=== PATIENT | female | born 1985 | race Caucasian/White ===

== ENCOUNTER → 2020-10-27 03:33 | Outpatient (CLI) | payer BC, SELFPAY ==
[2020-10-27 20:31] LABS: SARS-CoV-2 RNA PCR Negative
== END ==
PROVIDERS: Visit Provider Obstetrics & Gynecology
DX: Z01.812 Encounter for preprocedural laboratory examination (principal); Z20.822 Contact with and (suspected) exposure to COVID-19
CPT/HCPCS: C9803; U0003; U0005

== ENCOUNTER 2020-10-27 08:05 | Outpatient (CLI) | payer BC, SELFPAY ==
[2020-10-27 08:40] LABS: Basophils Percent Auto 0.6 % (0.2-1.2); Eosinophils Absolute Auto 0.1 K/mm3 (0-0.3); Eosinophils Percent Auto 0.9 % (0-4.4); Hematocrit 42.2 % (37.0-47.0); Hemoglobin 13.9 g/dL (12.0-15.0); Immature Granulocyte Absolute 0.01 K/mm3 (0.00-0.031); Immature Granulocyte Percent A 0.2 % (0-0.5); Lymphocytes Absolute Auto 1.57 K/mm3 (0.9-3.2); Lymphocytes Percent Auto 29.1 % (18.3-44.2); Mean Corpuscular HGB Conc 32.9 g/dl (32-36); Mean Corpuscular Hemoglobin 29.8 pg (26-34); Mean Corpuscular Volume 90.6 fl (80-100); Mean Platelet Volume 10.2 fl (7.4-10.4); Monocytes Absolute Auto 0.4 K/mm3 (0.1-0.6); Monocytes Percent Auto 7.4 % (2.6-8.5); Neutrophils Absolute Auto 3.3 K/mm3 (1.3-6.7); Neutrophils Percent Auto 61.8 % (45.5-73.1); Platelet Count Result 206 k/mm3 (150-375); Red Blood Count 4.66 M/mm3 (4.2-5.4); Red Cell Distribution Width 13.1 % (11.5-14.5); White Blood Count 5.4 K/mm3 (4.5-10.0)
== END 2020-10-27 08:06 | disposition home or self-care (01) ==
LOC: ANHSURGERY 08:13
PROVIDERS: PCP Family Medicine Adult Medicine; Visit Provider Obstetrics & Gynecology
DX: Z01.812 Encounter for preprocedural laboratory examination (principal); N81.4 Uterovaginal prolapse, unspecified
CPT/HCPCS: 36415; 85025; 86850; 86900; 86901

== ENCOUNTER 2020-10-30 01:39 | Day surgery (SDC) | payer BC, SELFPAY ==
[2020-10-15 15:33] VITALS: BMI 23.3
--- NOTE | 2020-10-28 12:07 | PM.IMHP ---
H&P: HPI History of Present Illness Date/Time: 10/28/20 12:07 35-year-old 3 para 2 is admitted for robotic total vaginal hysterectomy and bilateral salpingectomy. She has a known uterine prolapse. Her complaints include pain bleeding, and history of Pap. She understands this will make her permanently infertile. risks and benefits including but not exclusive of , aspiration pneumonia, bleeding, transfusion, perforation injury to bowel, bladder, ureters, or other internal organs with need for open laparotomy were all reviewed. She received the [employer] handout entitled hysterectomy as well as the [place] handout. She had all questions answered. And asked to proc Chief Complaint: pelvic pain/prolapse / abnormal Pap smears Review of Systems Review of Systems: All systems reviewed & are unremarkable except as noted in HPI and below PMFSH Social History Social History Years smoked: 15 Smoking status: Current some day smoker Tobacco type: cigarettes Second hand tobacco smoke exposure: No Additional smoking assessment comments: socially smokes when drinking; 1 pack per week on average Alcohol intake: current Drinks per week: 20 Substance use: never Spiritual care concerns: No Meds Home Medications and Allergies Home Medications Medication Instructions Recorded Confirmed Type levonorgestrel [Mirena] 1 device INTRAUTERINE ONCE 10/15/20 10/15/20 History Allergies Allergy/AdvReac Type Severity Reaction Status Date / Time amoxicillin Allergy Rash Verified 10/15/20 15:24 Exam Const: General: no acute distress Eyes: General: appearance normal, both eyes and all related structures Neck: Neck: supple and no JVD Thyroid: thyroid normal Resp: Effort & Inspection: normal respiratory effort Auscultation: clear to auscultation bilaterally Cardio: Rate: regular rate Rhythm: regular rhythm GI: Inspection: non-distended GI Palp: Yes Soft to palpation, No Tenderness to palpation present (GI) and No Guarding due to palpation present (GI) Auscultation: normal bowel sounds : External Female Exam: normal external appearance Speculum Exam - Vagina: normal appearance of the vagina Speculum Exam - Cervix: normal appearance of the cervix Bimanual exam- vagina & uterus: enlarged and Uterus displaced ( second-degree prolapse is noted) Bimanual Exam- Adnexa, other: normal adnexae Skin: General skin exam: no rashes or lesions noted Extrem: General: normal to inspection and no edema Psych: Mental Status: mental status grossly normal Affect: normal affect Assessment and Plan Additional Plan impression: Pelvic pain with an enlarged uterus /uterine prolapse / history of recurrence abnormal Pap smears Plan: Robotic total vaginal hysterectomy and bilateral salpingectomies
--- NOTE | 2020-10-29 10:52 | WPDANESEPPF ---
Anes - Initial Pre Proc Eval Procedure: Operation Date: 10/30/20 09:30 Proposed Procedures p Robotic Assisted Total Vaginal Hysterectomy With Bilateral Salpingectomy - Cal Rondon MD Date/Time: 10/29/20 10:52 Surgeon: Cal Rondon MD Pre Op Diagnosis: Uterine Prolapse,Pelvic Pain, Hx of Abn. Pap Patient Data Age: 35 Gender: F Height: 1.65 m Weight: 63.5 kg Allergies Allergy/AdvReac Type Severity Reaction Status Date / Time amoxicillin Allergy Rash Verified 10/30/20 08:21 Home Medications Medication Instructions Recorded Confirmed Type levonorgestrel [Mirena] 1 device INTRAUTERINE ONCE 10/15/20 10/30/20 History hydrocodone-acetaminophen 1 tablet PO Q4H PRN #30 tablet 10/30/20 Rx Patient hx anesthesia problems: none Family hx anesthesia problems: none PMFSH Past Medical History Medical History (Updated 10/30/20 @ 08:41 by Milton Christianson MD) ETOH abuse Smoker Uterine prolapse Social History Social History Years smoked: 15 Smoking status: Current some day smoker Tobacco type: cigarettes Second hand tobacco smoke exposure: No Additional smoking assessment comments: socially smokes when drinking; 1 pack per week on average Alcohol intake: current Drinks per week: 20 Alcohol use details: drinks 5 beers 3-4 times per week Substance use: never Living arrangements: with family Spiritual care concerns: No Anes - Eval Final PreProcedure Day of Procedure 10/29/20 10:52 Patient weight: normal Heart: regular rate and rhythm Lungs: clear to auscultation and normal air movement Airway: Mallampati scale class II Neurological: alert and oriented Last oral intake: >/= 8 hours ASA classification: II Emergent: no Anesthetic plan: proceed Anesthesia type and monitoring: general ETT Informed Consent: The patient's anesthetic plan and its attendant risks and benefits were discussed with the patient/family/POA. Questions were solicited and answers provided to the satisfaction of the patient/family/POA.
[2020-10-30] VITALS (11 sets, daily range): BP systolic 89–130; BP diastolic 49–75; PULSE 60–92; RESP 10–18; TEMP 36.3–37.3; O2SAT 97–100
--- NOTE | 2020-10-30 06:02 | WPDHPUPDATE1 ---
History and Physical Update Update Date/Time: 10/30/20 06:02 History and Physical has been reviewed, including an updated exam of the patient. There are NO changes in the patient's condition. Risks, benefits, and alternatives have been discussed and questions answered. Patient agrees to proceed with procedure.
[2020-10-30] MEDS: ACETAMINOPHEN 500 MG TABLET 1000 MG PO (08:11)
[2020-10-30] MEDS: KETOROLAC 15 MG/ML VIAL (*BKC) IV PUSH (08:12)
[2020-10-30] MEDS: LACTATED RINGERS 1,000 ML 30 ML IV CONT ×2 (08:13→10:36)
[2020-10-30] MEDS: ceFAZolin 2 GM/D5W 50 ML 2 GM/50 ML BAG IVPB (09:16)
--- NOTE | 2020-10-30 10:19 | PM.PROC ---
Procedure Note - Detailed Date of procedure: 10/30/20 Pre-op diagnosis: Uterine Prolapse,Pelvic Pain, Hx of Abn. Pap Surgeon: Cal Rondon MD Postop diagnosis: Uterine prolapse/pelvic pain/recurrence abnormal Pap smears Procedure: Robotic total vaginal hysterectomy and bilateral salpingectomies Anesthesia: General endotracheal EBL: 25cc Findings: Enlarged uterus with uterine prolapse. Normal-appearing tubes and ovaries. Complications: None Description of procedure: The patient was prepped and draped in the normal sterile fashion placed in the dorsal lithotomy position. Under excellent general trach anesthesia weighted speculum placed in posterior fornix of vagina. Anterior lip of the cervix was grasped with a single-tooth tenaculum the uterus sounded to 10cm. Serial dilatation with fragmented dilators performed followed by passage of the 8. CECY and the 3. Cold cup. Next the 16 [place] catheter was placed in the bladder and the bladder drained of clear urine. The weighted speculum was removed and the remainder the instruments removed. Gloves were changed A supraumbilical incision made the Veress needle passed in the abdomen. The abdomen filled with CO2 gas [id number]. The 8mm trocar advanced the abdomen the downside visualized. No injury seen. The patient placed in Trendelenburg and right left lateral quadrant incision the 8mm trocars advanced under direct visualization assuring no injury. A right upper quadrant incision made the 8mm trocar advanced under direct visualization assuring no injury. The patient was docked with the robot. Attention was turned the licensed mental health counselor. The left round ligament grasped, burned, cut. Anteriorly a bladder flap was formed by sharply dissecting bladder away from the cervix and uterus caudally to the opposite round ligament was clamped, burned, cut. Next the left fallopian tube was skeletonized in sharply dissected away from the ovary. In like fashion the right fallopian tube was removed by sharply dissecting it away from the ovary. The left utero-ovarian ligament was skeletonized conserve left ovary. This was clamped, burned, cut and brought to the level the previously cut round in like fashion the right ovary was conserved by clamping burning cutting right utero-ovarian ligament and brought to the level of the previously cut round ligament. The cardinal and broad ligaments on the left were serially skeletonized brought down the lateral edge of the uterus and cervix to until the uterine vessels could be seen. Uterine vessels were individually clamped, burned, cut. In like fashion the cardinal broad ligaments were serially clamped, burned, cut and brought down the lateral edge of the uterus until the uterine vessels could be seen. These were individually clamped, burned, cut. Blanching of the uterus was seen a colpotomy incision was then made. The cervix uterus and tubes removed through the vagina. Blood loss estimated about 25cc. The vagina was closed with continuous running 0V lock from lateral edge to lateral edge back to the midline. Irrigation undertaken to clear in hematuria placed over the raw surface area. All pedicles appeared dry. The robot was undocked. The gas removed from the abdomen. The trocars removed and incisions closed with 4 Monocryl glue. The patient was awakened and went to recovery in satisfactory condition. All sponge, needle, instrument counts were correct. There were no immediate complications
[2020-10-30] MEDS: ONDANSETRON INJ 4 MG/2 ML VIAL IV PUSH (10:44)
[2020-10-30] MEDS: HALOPERIDOL LACTATE 5 MG/ML VIAL IV PUSH (11:00)
[2020-10-30] MEDS: SCOPOLAMINE 1.5 MG PATCH TRANSDERM (11:00)
--- NOTE | 2020-10-30 12:37 | SUR.PHASEI ---
PT IN NSR DURING ENTIRE STAY IN PACU.
[2020-10-30] MEDS: KETOROLAC 30 MG/ML VIAL (*BKC) IV PUSH (19:49)
[2020-10-30] MEDS: DEXTROSE 5%/LACTATED RINGERS 1,000 ML 125 ML IV CONT (19:51)
[2020-10-30] MEDS: HYDROcodone/acetaminophen (*CRX) 5-325 MG TABLET 1 TAB PO (23:45)
[2020-10-31] VITALS: BP 94/55; PULSE 64; RESP 16; TEMP 37.1; O2SAT 98
[2020-10-31 04:00] VITALS: BP 95/55; PULSE 60; RESP 16; TEMP 37.2; O2SAT 99
[2020-10-31] MEDS: HYDROcodone/acetaminophen (*CRX) 5-325 MG TABLET 1 TAB PO (04:10)
[2020-10-31] MEDS: IBUPROFEN 600 MG TABLET PO (04:10)
[2020-10-31 05:37] LABS: Basophils Percent Auto 0.3 % (0.2-1.2); Eosinophils Percent Auto 0.2 % (0-4.4); Hematocrit 35.4 % (37.0-47.0); Hemoglobin 11.5 g/dL (12.0-15.0); Immature Granulocyte Absolute 0.07 K/mm3 (0.00-0.031); Immature Granulocyte Percent A 0.5 % (0-0.5); Lymphocytes Absolute Auto 2.93 K/mm3 (0.9-3.2); Lymphocytes Percent Auto 19.7 % (18.3-44.2); Mean Corpuscular HGB Conc 32.5 g/dl (32-36); Mean Corpuscular Hemoglobin 30.5 pg (26-34); Mean Corpuscular Volume 93.9 fl (80-100); Mean Platelet Volume 10.8 fl (7.4-10.4); Monocytes Percent Auto 6.6 % (2.6-8.5); Neutrophils Absolute Auto 10.8 K/mm3 (1.3-6.7); Neutrophils Percent Auto 72.7 % (45.5-73.1); Platelet Count Result 160 k/mm3 (150-375); Red Blood Count 3.77 M/mm3 (4.2-5.4); Red Cell Distribution Width 12.9 % (11.5-14.5); White Blood Count 14.9 K/mm3 (4.5-10.0)
[2020-10-31 07:30] VITALS: BP 102/65; PULSE 55; RESP 16; TEMP 36.4; O2SAT 100
--- NOTE | 2020-10-31 07:33 | WPDANESPN ---
Anes - Prog Note Post-Op Date/Time: 10/31/20 07:33 Cardiovascular status: normal Respiratory status: normal Airway patency: baseline Mental status: baseline Post-Op hydration status: normal Vital Signs: Last Vital Signs Temp 37.2 C 10/31/20 04:00 Pulse 60 10/31/20 04:00 Resp 16 10/31/20 04:00 BP 95/55 L 10/31/20 04:00 Pulse Ox 99 10/31/20 04:00 Pain Score (VAS): 2 I/O: Intake & Output 10/30/20 10/30/20 10/31/20 15:59 23:59 07:59 Intake Total 500 1500 Output Total 50 450 675 Balance 450 -450 825 Laboratory Tests 10/31/20 04:15 10/31/20 04:15 WBC 14.9 H RBC 3.77 L Hgb 11.5 L Hct 35.4 L MCV 93.9 MCH 30.5 MCHC 32.5 RDW 12.9 Plt Count 160 MPV 10.8 H Immature Gran % (Auto) 0.5 Neut % (Auto) 72.7 Lymph % (Auto) 19.7 [place] % (Auto) 6.6 Eos % (Auto) 0.2 Baso % (Auto) 0.3 Lymph # (Auto) 2.93 [place] # (Auto) 1.0 H Eos # (Auto) 0.0 Baso # (Auto) 0.0 Abs Immat Gran (auto) 0.07 H Absolute Neuts (auto) 10.8 H Absolute Nucleated RBC 0.0 Nucleated RBC % 0.0 Post-procedural complaints: none Patient Feedback: Patient satisfied with anesthetic care.
--- NOTE | 2020-10-31 07:49 | PM.OBPNVD ---
OB - PN: Subj Subjective Date/time seen: 10/31/20 07:49 Patient comments: no complaints and pain well controlled OB - PN: Obj Data Labs CBC & Chem 7: 10/31/20 04:15 Labs: Laboratory Results - last 24 hr 10/31/20 04:15 WBC 14.9 H RBC 3.77 L Hgb 11.5 L Hct 35.4 L MCV 93.9 MCH 30.5 MCHC 32.5 RDW 12.9 Plt Count 160 MPV 10.8 H Immature Gran % (Auto) 0.5 Neut % (Auto) 72.7 Lymph % (Auto) 19.7 [place] % (Auto) 6.6 Eos % (Auto) 0.2 Baso % (Auto) 0.3 Lymph # (Auto) 2.93 [place] # (Auto) 1.0 H Eos # (Auto) 0.0 Baso # (Auto) 0.0 Abs Immat Gran (auto) 0.07 H Absolute Neuts (auto) 10.8 H Absolute Nucleated RBC 0.0 Nucleated RBC % 0.0 OB - PN A/P Plan day: 1 Plan: discharge home and follow up 6 weeks (2 weeks) Time Spent With Patient Time: Total time spent is greater than 50% in coordination of care (as documented) at patient's floor/unit and/or counseling patient: Time with patient: less than 15 minutes Review of Systems Review of Systems: All systems reviewed & are unremarkable except as noted in HPI and below Exam Const: General: no acute distress Eyes: General: appearance normal, both eyes and all related structures Neck: Neck: supple and no JVD Thyroid: thyroid normal Resp: Effort & Inspection: normal respiratory effort Auscultation: clear to auscultation bilaterally Cardio: Rate: regular rate Rhythm: regular rhythm GI: Inspection: normal to inspection and incision (cdi ) Percussion: Yes normal to percussion Auscultation: normal bowel sounds Skin: General skin exam: no rashes or lesions noted Extrem: General: normal to inspection and no edema Psych: Mental Status: mental status grossly normal Affect: normal affect
--- NOTE | 2020-10-31 07:51 | PM.DS ---
DS: Admitting Diagnosis Admitting Diagnosis Admitting Diagnosis: bleeding /pain DS: Summary Hospital Course Hospital Course: The patient was admitted for robotic total vaginal hysterectomy and bilateral salpingectomy. The procedure was performed on 10/30/2020 and was unremarkable. Please see the operative report for full details. Her hospital course was unremarkable. She remained afebrile. She was up, ambulating, eating, and general without complaints Time Spent with Patient Time attestation: Total time spent providing and/or coordinating discharge services: Exam Const: General: no acute distress Eyes: General: appearance normal, both eyes and all related structures Neck: Neck: supple and no JVD Thyroid: thyroid normal Resp: Effort & Inspection: normal respiratory effort Auscultation: clear to auscultation bilaterally Cardio: Rate: regular rate Rhythm: regular rhythm GI: Inspection: non-distended GI Palp: Yes Soft to palpation, No Tenderness to palpation present (GI) and No Guarding due to palpation present (GI) Auscultation: normal bowel sounds : General: Yes bladder normal to palpation External Female Exam: normal external appearance Speculum Exam - Vagina: normal vaginal discharge and No vaginal bleeding Speculum Exam - Cervix: nontender Bimanual exam- vagina & uterus: bladder normal to palpation and No Cervical tenderness present OB/external & speculum: No vaginal bleeding Skin: General skin exam: no rashes or lesions noted Extrem: General: normal to inspection and no edema Psych: Mental Status: mental status grossly normal Affect: normal affect DS: Data Data Completed and Pending Pending studies at discharge: Pending at discharge 10/30/20 09:54 Surgical [PTH] Routine Labs on day of discharge: Labs from last 24 hours 10/31/20 04:15 WBC 14.9 H RBC 3.77 L Hgb 11.5 L Hct 35.4 L MCV 93.9 MCH 30.5 MCHC 32.5 RDW 12.9 Plt Count 160 MPV 10.8 H Immature Gran % (Auto) 0.5 Neut % (Auto) 72.7 Lymph % (Auto) 19.7 [place] % (Auto) 6.6 Eos % (Auto) 0.2 Baso % (Auto) 0.3 Lymph # (Auto) 2.93 [place] # (Auto) 1.0 H Eos # (Auto) 0.0 Baso # (Auto) 0.0 Abs Immat Gran (auto) 0.07 H Absolute Neuts (auto) 10.8 H Absolute Nucleated RBC 0.0 Nucleated RBC % 0.0 Discharge Plan Discharge Patient Disposition: Home, Self-Care Stand Alone Forms: General Discharge Instructions Follow-up/Referrals: Cal Rondon MD [Physician] - Discharge Medications: New hydrocodone-acetaminophen 5-325 mg tablet 1 tablet PO Q4H PRN (Reason: pain) Qty: 30 RF: 0 Continued Mirena 20 mcg/24 hours (6 yrs) 52 mg Intrauterine Device 1 device INTRAUTERINE ONCE RF: 0
[2020-10-31] MEDS: ENOXAPARIN 40 MG/0.4 ML SYRINGE SUB-Q (10:32)
[2020-10-31] MEDS: DOCUSATE SODIUM 100 MG CAPSULE PO (10:32)
== END 2020-10-31 10:34 | disposition home or self-care (01) ==
LOC: ANHSURGERY 07:29 → ANHOB2 12:20
PROVIDERS: Visit Provider Obstetrics & Gynecology
PROC: (CPT 58552; principal; 2020-10-30 09:30)
DX: N81.4 Uterovaginal prolapse, unspecified (principal); N80.0 Endometriosis of uterus; R10.2 Pelvic and perineal pain; R87.619 Unspecified abnormal cytological findings in specimens from cervix uteri; F17.210 Nicotine dependence, cigarettes, uncomplicated
CPT/HCPCS: 58552; S2900; 36415; 85025; 88307; 99199; A9270; J0330; J0690; J1100; J1170; J1630; J1650; J1885; J2250; J2405; J2704; J2710; J3010; J7030; J7120; J7121